=== PATIENT | male | born 1960 | race Caucasian/White ===

== ENCOUNTER 2021-03-14 12:05 | Day surgery (SDC) | payer OTHER, SELFPAY ==
[~2021-03-14] VITALS: Ht 175.3 cm; Wt 113.4 kg
[2021-03-14] MEDS ORDERED: NS IRRIG SOLN 1000 ML IR ONE (14:00)
[2021-03-14] MEDS ORDERED: BACITRACIN ZINC 15 GM TOPICAL OINTMENT TP ONE (14:00)
[2021-03-14] MEDS ORDERED: WATER FOR IRRIGATION,STERILE 1,000 ML IRRIG.SOLN IR ONE (14:00)
[2021-03-14] MEDS ORDERED: ARTICAINE HCL/EPINEPHRINE 4%/1:200,000 BIT 1.7 ML CARTRIDGE IJ ONE (14:00)
[2021-03-14] MEDS ORDERED: NS 250 ML IV.SOLN IV ONE (14:00)
[2021-03-14 17:41] VITALS: BP_SYST 110
== END 2021-03-14 17:20 | disposition home or self-care (01) ==
LOC: SDS 12:05
PROVIDERS: ATTEND Dentist General Practice
DX: M27.2 Inflammatory conditions of jaws (principal); M89.8X0 Other specified disorders of bone, multiple sites; M26.603 Bilateral temporomandibular joint disorder, unspecified; G47.33 Obstructive sleep apnea (adult) (pediatric); H92.09 Otalgia, unspecified ear; M79.10 Myalgia, unspecified site; R68.84 Jaw pain; K05.223 Aggressive periodontitis, generalized, severe; G50.1 Atypical facial pain; K04.2 Pulp degeneration; K12.2 Cellulitis and abscess of mouth; Z79.899 Other long term (current) drug therapy; Z20.822 Contact with and (suspected) exposure to COVID-19
CPT/HCPCS: 21026; 21215; 36415; 41826; 70140; 82962; 87426; C1713 ×2; J7050